=== PATIENT | female | born 1970 ===

== ENCOUNTER 2020-11-25 09:49 | Outpatient (CLI) | payer OTHER ==
--- NOTE | 2020-11-25 17:11 | Mammography Report ---
DIGITAL DIAGNOSTIC MAMMOGRAM WITH CAD CONVENTIONAL, 11/25/2020 CLINICAL INFORMATION / INDICATION: Bilateral generalized breast pain. TECHNIQUE: Digital bilateral mammographic imaging was performed. This examination was interpreted with the benefit of Computer-aided Detection analysis. COMPARISON: Bilateral mammography 12/06/2017 through 08/20/2020. FINDINGS: Breast Density: The breasts are heterogeneously dense, which may obscure small masses. No dominant mass, suspicious calcifications or architectural distortion in either breast. IMPRESSION: No mammographic evidence of malignancy. Follow up recommendation: Routine yearly BI-RADS Category 1: Negative. A "normal" or negative report should not discourage follow up or biopsy of a clinically significant f inding. A written summary of these findings will be mailed to the patient. The patient will be entered into a mammography reporting system which will generate a reminder letter for the patient's next appointmen t at the appropriate interval. According to the [employer], yearly mammograms are recommended starting at age 40 and continuing as long as a woman is in good health. Breast MRI is recommended for women with an elio roximately 20-25% or greater lifetime risk of breast cancer, including women with a strong family his tory of breast or ovarian cancer and women who have been treated for Hodgkin's disease. Signer Name: Ramos Partida MD Signed: 11/25/2020 5:07 PM Workstation Name: [id number]
== END 2020-11-25 09:50 | disposition home or self-care (01) ==
LOC: MAMMO 09:49
PROVIDERS: ATTEND Urology
DX: R92.8 Other abnormal and inconclusive findings on diagnostic imaging of breast (principal); N64.59 Other signs and symptoms in breast
CPT/HCPCS: 77066